=== PATIENT | female | born 1965 | race Caucasian/White ===

== ENCOUNTER 2017-03-13 12:32 | Observation (INO) | payer OTHER ==
--- NOTE | ~2017-03-13 | HP ---
History And Physical [facility] [address] [place] [address] NAME: OSCAR LOZANO : 65 STATUS : ADM Mason PAT#: [id number] AGE: 51 ADM/REG DATE : 03/13/17 MR#: [id number] REPORT SERV DATE: 03/13/17 DICTATED BY: BRAYDEN HERNANDEZ DATE: 03/13/17 REPORT STATUS : Draft TRANSCRIBED BY: MODChirag DATE: 03/13/17 DATE OF ADMISSION: 03/13/2017 Primary care provider is Dr. Prashanth Sauceda from [place]. CHIEF COMPLAINT: Chest tightness. HISTORY OF PRESENT ILLNESS: A pleasant 51-year-old white female with no known history of CAD, who reports undergoing an ablation for an unknown rhythm approximately 10 years ago at [facility]. 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 She had some nausea and vomiting and then experienced some left-sided chest tightness that radiated into her left arm. She states she felt weak. Her lips "felt weird." She reports associated shortness of breath, nausea, diaphoresis, and dizziness. Denies any belching. At its most intense, she rates the chest pain as 6/10. At the time of interview in the ER, she rates it a 3/10. The episodes last approximately 10 minutes in duration. No medications were provided at work and none by EMS. She reports being queasy for several days and on exam, the patient's face is flushed. She states that she has recently had bronchitis and has been flushed. Denies any febrile state. Denies any personal history of myocardial infarction, stroke, DVT, or pulmonary embolus. Recently was treated for bronchitis with prednisone, Tessalon Perles, and a cough medicine with codeine to which she is allergic, initiating a reaction of itching. Denies palpitations. No syncopal episodes. Denies PND or orthopnea. PAST MEDICAL HISTORY: 1. Current bronchitis. 2. Asthma. 3. Arthritis. 4. History of ablation in 2005 at [facility] for unknown rhythm. 5. Denies hypertension, dyslipidemia, or diabetes. 6. Ongoing tobacco abuse. 7. Positive family history for early CAD. SURGICAL HISTORY: 1. Cholecystectomy. 2. Hysterectomy. 3. Right carpal tunnel. 4. Sinus surgery. 5. . SOCIAL HISTORY: She is , with three children. She is a special delivery worker at [employer]. Does not have a structured exercise routine although she lifts and walks all day long at work. She smokes a half pack per day for 15 years. Denies alcohol or illicits. FAMILY HISTORY: Mother with a stroke in her 50s, remains alive at 68. Father at 50 of History And Physical [address] [address] NAME: OSCAR LOZANO : 65 STATUS : ADM Mason PAT#: [id number] AGE: 51 ADM/REG DATE : 03/13/17 MR#: [id number] REPORT SERV DATE: 03/13/17 DICTATED BY: BRAYDEN HERNANDEZ DATE: 03/13/17 REPORT STATUS : Draft TRANSCRIBED BY: MODChirag DATE: 03/13/17 lymphoma. REVIEW OF SYSTEMS: A 14-point review of systems performed, significant for HPI including snores per report with no formal sleep study. Otherwise, complete review of systems obtained and negative. ALLERGIES: ALLERGY TO CODEINE, NAUSEA, VOMITING, AND ITCHING. ASPIRIN, SHORTNESS OF BREATH AND RESPIRATORY DISTRESS. HOME MEDICINES: Albuterol MDI 2 puffs every four hours p.r.n.; albuterol nebulizer 4 times daily p.r.n.; Lasix 20 mg daily; BuSpar 7.5 mg twice daily p.r.n.; prednisone Dosepak for 12 days; Wellbutrin 150 mg twice daily; Tessalon Perles 100 mg three times daily p.r.n.; Singulair 10 mg twice daily; Mobic 15 mg daily; diclofenac 75 mg twice daily; Hycodan oral syrup p.r.n. (allergic to codeine); Antivert 25 mg nightly; vkaa-vva-comzwbt laxative; Tums p.r.n.; Claritin 10 mg p.r.n.; Flonase spray p.r.n.; and iron tablet daily. PHYSICAL EXAMINATION: VITAL SIGNS: Blood pressure 144/74, pulse 74, respirations 18, and temperature 97.8. GENERAL: Cooperative, in no apparent distress. Face flushed. HEENT: Pupils 2 mm, sclera nonicteric. Nares patent. Moist mucous membranes. No xanthelasma. NECK: Trachea midline, no thyromegaly. No JVD. No bruits. LYMPH: No cervical lymphadenopathy. No supraclavicular lymphadenopathy. RESPIRATORY: Unlabored respirations. Breath sounds clear bilaterally to posterior auscultation. No wheezes or rhonchi. CARDIOVASCULAR: Regular rate. No murmur, rub or gallop appreciated. Extremities without edema. Pulses 2+ bilaterally. ABDOMEN: Obese. Soft, nontender, nondistended, normal bowel sounds auscultated throughout. No organomegaly. SKIN: Warm, dry extremities. No pallor or cyanosis. PSYCHIATRIC: Appropriate affect. Alert, oriented x3. LABORATORY DATA: Troponin less than 0.02, second at 1900 hours, potassium 4.1, BUN 17, creatinine 0.80, glucose 109, and magnesium 2.5. WBC 15.8, hemoglobin 14.8, hematocrit 43.6, and platelet count 259,000. EKG sinus rhythm. ASSESSMENT AND PLAN: 1. Chest tightness with current bronchitis. Rule out myocardial infarction per protocol with serial enzymes and serial EKGs. If second troponin negative, n.p.o. after midnight for MPI in the morning. The patient will be discharged home if low risk, no ischemia. If anything suggestive of ischemia, Cardiology referral be initiated, otherwise, the patient will be asked to follow up with her PCP in one-to-two weeks with followup studies being sent to that office. 2. Bronchitis. Continue prednisone, albuterol treatments, and Tessalon Perles as previously prescribed. 3. Ongoing tobacco abuse. Counseled regarding cessation given her history of asthma, current bronchitis, and to promote cardiovascular health and well being. History And Physical [address] [place]. [address] NAME: OSCAR LOZANO : 65 STATUS : ADM Mason PAT#: [id number] AGE: 51 ADM/REG DATE : 03/13/17 MR#: [id number] REPORT SERV DATE: 03/13/17 DICTATED BY: BRAYDEN HERNANDEZ DATE: 03/13/17 REPORT STATUS : Draft TRANSCRIBED BY: MODL DATE: 03/13/17 MEHDI/MODL ADAM Lucas, KELLEY / [id number] CC: ADAM Lucas, KELLEY SAUCEDA
[2017-03-13 13:06] LABS: BASOPHILS 0.1 %; BASOPHILS ABSOLUTE 0.01 10/3/uL (0.0-0.16); EOSINOPHILS 0 %; HEMATOCRIT 43.6 % (36.0-48.0); HEMOGLOBIN 14.8 g/dL (12.0-16.0); IMMATURE GRANULOCYTES 0.4 %; IMMATURE GRANULOCYTES ABSOLUTE 0.07 10/3/uL (0.0-0.11); LYMPHOCYTES 6.3 %; MEAN CORPUS HGB CONC 33.9 g/dL (32.0-36.0); MEAN CORPUSCULAR HEMOGLOB 31.4 pg (26.0-34.0); MEAN CORPUSCULAR VOLUME 92.4 fL (80-100); MEAN PLATELET VOLUME 10.1 fL (9.2-13.0); MONOCYTES 2.2 %; MONOCYTES ABSOLUTE 0.34 10/3/uL (0.21-1.20); NEUTROPHILS ABSOLUTE 14.33 10/3/uL (2.02-8.40); PLATELET COUNT 259 10/3/uL (150-400); RBC DISTRIBUTION WIDTH 14.2 % (12.0-16.0); RED CELL COUNT 4.72 10/6/uL (4.0-5.6); WHITE BLOOD CELLS 15.8 10/3/uL (4.5-10.5)
[2017-03-13 13:08] LABS: MANUAL DIFF NO %
[2017-03-13 13:14] LABS: PROTIME (NOT ORD) 12.6 SEC (12.0-14.5)
[2017-03-13 13:15] LABS: PARTIAL THROMBO TIME 24.9 SEC (22.5-37.2)
[2017-03-13 13:22] LABS: BUN (BLOOD UREA NITROGEN) 17 MG/DL (6-23); CALCIUM, SERUM 9.9 MG/DL (8.5-10.4); CHEST PAIN PROFILE TAT 0 Hrs 00 Mins; CHLORIDE, SERUM 107 MMOL/L (96-112); CO2 (CARBON DIOXIDE) 25 MMOL/L (24-34); GFR AFRICAN AMERICAN 99 ML/MIN (>=60); GFR NON AFRICAN AMERICAN 85 ML/MIN (>=60); GLUCOSE, SERUM 109 MG/DL (60-99); POTASSIUM, SERUM 4.1 MMOL/L (3.5-5.3); SODIUM, SERUM 140 MMOL/L (135-148); TROPONIN I <0.02 NG/ML (<0.05)
[2017-03-13] MEDS ORDERED: PROAIR HFA INH (14:27)
[2017-03-13] MEDS ORDERED: ALBUTEROL0.083 % INH (14:27)
[2017-03-13] MEDS ORDERED: BUSPIRONE7.5 MG PO (14:28)
[2017-03-13] MEDS ORDERED: L20 PO (14:28)
[2017-03-13] MEDS ORDERED: SINGULAIR1 PO (14:29)
[2017-03-13] MEDS ORDERED: TESS PO (14:29)
[2017-03-13] MEDS ORDERED: STERAPDS12 PO (14:29)
[2017-03-13] MEDS ORDERED: WELLSR150 PO (14:29)
[2017-03-13] MEDS ORDERED: MOBIC15 MG PO (14:30)
[2017-03-13] MEDS ORDERED: VOLT75 PO (14:30)
[2017-03-13] MEDS ORDERED: HYCODAN PO (14:31)
[2017-03-13] MEDS ORDERED: MCZ25 PO (14:32)
[2017-03-13] MEDS ORDERED: TUMSROLL PO (14:33)
[2017-03-13] MEDS ORDERED: OTC LAXATIVE PO (14:33)
[2017-03-13] MEDS ORDERED: OTC IRON TABLET PO (14:34)
[2017-03-13] MEDS ORDERED: CLARIT10 PO (14:34)
[2017-03-13] MEDS ORDERED: FLONASE NAS (14:34)
== END 2017-03-14 14:39 | disposition home or self-care (01) ==
LOC: ER 12:32 → CDU1 15:11
PROVIDERS: Nurse Practitioner
DX: R07.89 Other chest pain (principal); J40 Bronchitis, not specified as acute or chronic; J45.909 Unspecified asthma, uncomplicated; M19.90 Unspecified osteoarthritis, unspecified site; Z82.49 Family history of ischemic heart disease and other diseases of the circulatory system; Z90.49 Acquired absence of other specified parts of digestive tract; Z90.710 Acquired absence of both cervix and uterus; Z98.890 Other specified postprocedural states; Z82.3 Family history of stroke; Z88.5 Allergy status to narcotic agent; Z88.8 Allergy status to other drugs, medicaments and biological substances; Z79.899 Other long term (current) drug therapy
CPT/HCPCS: 71010; 78452; 80048; 83735; 84484; 85025; 85610; 85730; 93005; 93017; 99285; A9270-GY; A9502; G0378